=== PATIENT | male | born 1975 | race Caucasian/White ===

== ENCOUNTER 2017-02-16 12:24 | Emergency (ER) | payer MEDICAID ==
[~2017-02-16] VITALS: Ht 167.6 cm; Wt 63.6 kg
[~2017-02-16 12:24] MED LIST: OLAN10TA3 PO
[2017-02-16 12:28] VITALS: BP 128/69
== END 2017-02-16 15:00 | disposition left against medical advice (07) ==
LOC: EMS 12:26
DX: R05 Cough (principal); F17.210 Nicotine dependence, cigarettes, uncomplicated; Z53.21 Procedure and treatment not carried out due to patient leaving prior to being seen by health care provider

== ENCOUNTER 2018-07-17 12:57 | Emergency (ER) | payer MEDICAID ==
[~2018-07-17] VITALS: Ht 177.8 cm; Wt 73.6 kg
[2018-07-17 14:06] LABS: BASOPHILS % (AUTO) 0.6 % (0.0-2.0); HEMATOCRIT 40.3 % (41-53); HEMOGLOBIN 13.8 g/dL (13.5-17.5); LYMPHOCYTES # (AUTO) 1.1 K/uL (1.0-4.8); LYMPHOCYTES % (AUTO) 22.2 % (22.0-44.0); MEAN CORPUSCULAR HEMOGLOBIN 29.2 pg (26.0-34.0); MEAN CORPUSCULAR HGB CONC 34.1 G/dL (31.0-37.0); MEAN CORPUSCULAR VOLUME 86 fL (80-100); MONOCYTES # (AUTO) 0.5 K/uL (0.1-1.0); MONOCYTES % (AUTO) 9.1 % (2.0-9.0); NEUTROPHILS # (AUTO) 3.2 K/uL (1.8-7.7); NEUTROPHILS % (AUTO) 63.1 % (40.0-70.0); PLATELET COUNT (AUTO) 237 K/uL (150-450); RED BLOOD CELL COUNT(AUTO) 4.72 MIL/uL (4.50-5.90); RED CELL DISTRIBUTION WIDTH 13.3 % (11.5-14.5)
[2018-07-17 14:20] LABS: ANION GAP 5 mmol/L (8-16); CALCIUM, TOTAL 9.3 mg/dL (8.8-10.5); CARBON DIOXIDE 32 mmol/L (22-29); CHLORIDE 102 mmol/L (98-107); CREATININE 1.06 mg/dL (0.60-1.30); GLOMERULAR FILTR. RATE CALC > 60 mL/min (>60); GLUCOSE,RANDOM 94 mg/dL (70-110); POTASSIUM 4.1 mmol/L (3.5-5.1); SODIUM SERUM 139 mmol/L (136-145); UREA NITROGEN, BLOOD 7 mg/dL (7-18)
[2018-07-17 14:25] LABS: ALANINE AMINOTRANSFERASE 23 U/L (12-78); ALBUMIN 3.9 g/dL (3.4-5.0); ALKALINE PHOSPHATASE 84 U/L (46-116); ASPARTATE AMINOTRANSFERASE 13 U/L (15-37); BILIRUBIN,TOTAL 0.3 mg/dL (0.1-1.0); TOTAL PROTEIN, SERUM 7.2 g/dL (6.4-8.2)
[2018-07-17 15:37] LABS: AMPHET/METH SCREEN,URINE POSITIVE (NEGATIVE); BARBITURATE SCREEN, URINE NEGATIVE (NEGATIVE); BENZODIAZEPINES SCREEN,URINE NEGATIVE (NEGATIVE); CANNABINOID SCREEN,URINE NEGATIVE (NEGATIVE); COCAINE SCREEN,URINE NEGATIVE (NEGATIVE); METHADONE SCREEN, URINE NEGATIVE (NEGATIVE); OPIATE SCREEN,URINE NEGATIVE (NEGATIVE); PHENCYCLIDINE SCREEN,URINE NEGATIVE (NEGATIVE)
[2018-07-17 20:17] VITALS: BP 120/80
== END 2018-07-17 20:19 | disposition home or self-care (01) ==
LOC: EMS 13:00
DX: F20.9 Schizophrenia, unspecified (principal); F31.9 Bipolar disorder, unspecified; F17.210 Nicotine dependence, cigarettes, uncomplicated; Z79.899 Other long term (current) drug therapy
CPT/HCPCS: 36415; 80053; 80307; 85025; 99285; G0480

== ENCOUNTER 2020-08-14 19:10 | Emergency (ER) | payer MEDICAID ==
[~2020-08-14] VITALS: Ht 177.8 cm; Wt 63.6 kg
[~2020-08-14 19:10] MED LIST changes: -OLAN10TA3 PO; +OLAN10TA74 PO
[2020-08-14 19:46] VITALS: BP 137/74
== END 2020-08-14 20:10 | disposition home or self-care (01) ==
LOC: EMS 19:10
DX: Z76.5 Malingerer [conscious simulation] (principal); F17.210 Nicotine dependence, cigarettes, uncomplicated; F31.9 Bipolar disorder, unspecified; F20.9 Schizophrenia, unspecified; Z79.899 Other long term (current) drug therapy
CPT/HCPCS: 99281; 99406; Z7502

== ENCOUNTER 2022-07-11 13:52 | Inpatient (IN) | payer MEDICAID ==
[~2022-07-11] VITALS: Ht 177.8 cm; Wt 69.7 kg
[2022-07-11 15:58] LABS: COVID AG,FIA SOURCE NASAL SWAB
[2022-07-11] MEDS ORDERED: QUEtiapine FUMARATE 100 MG TABLET PO ONE (16:00)
[2022-07-11] MEDS ORDERED: DiphenhydrAMINE HCL 25 MG CAPSULE PO ONE (16:00)
[2022-07-11] MEDS ORDERED: LORazepam 1 MG TABLET PO ONE (16:00)
[2022-07-11 16:38] LABS: SARS-COV2 (COVID) ANTIGEN,FIA Negative (Negative)
[2022-07-11 17:23] LABS: PH,URINE DRUG SCREEN 6.5 (5.0-8.0)
[2022-07-11 17:30] LABS: AMPHET/METH SCREEN,URINE POSITIVE (NEGATIVE); BARBITURATE SCREEN, URINE NEGATIVE (NEGATIVE); BENZODIAZEPINES SCREEN,URINE NEGATIVE (NEGATIVE); CANNABINOID SCREEN,URINE NEGATIVE (NEGATIVE); COCAINE SCREEN,URINE NEGATIVE (NEGATIVE); METHADONE SCREEN, URINE NEGATIVE (NEGATIVE); OPIATE SCREEN,URINE NEGATIVE (NEGATIVE); PHENCYCLIDINE SCREEN,URINE NEGATIVE (NEGATIVE)
[2022-07-11 17:31] LABS: ALCOHOL, URINE DRUG SCREEN NEGATIVE (NEGATIVE)
[2022-07-11 17:47] LABS: BASOPHILS % (AUTO) 0.4 % (0.0-2.0); HEMATOCRIT 38.9 % (41-53); HEMOGLOBIN 13.1 g/dL (13.5-17.5); LYMPHOCYTES # (AUTO) 1.7 K/uL (1.0-4.8); LYMPHOCYTES % (AUTO) 25.5 % (22.0-44.0); MEAN CORPUSCULAR HEMOGLOBIN 28.8 pg (26.0-34.0); MEAN CORPUSCULAR HGB CONC 33.6 G/dL (31.0-37.0); MEAN CORPUSCULAR VOLUME 86 fL (80-100); MONOCYTES # (AUTO) 0.4 K/uL (0.1-1.0); MONOCYTES % (AUTO) 6.7 % (2.0-9.0); NEUTROPHILS # (AUTO) 4.3 K/uL (1.8-7.7); NEUTROPHILS % (AUTO) 64.4 % (40.0-70.0); PLATELET COUNT (AUTO) 304 K/uL (150-450); RED BLOOD CELL COUNT(AUTO) 4.54 MIL/uL (4.50-5.90); RED CELL DISTRIBUTION WIDTH 13.3 % (11.5-14.5); WHITE BLOOD COUNT (AUTO) 6.7 K/uL (4.5-11.0)
[2022-07-11 17:57] LABS: ANION GAP 5 mmol/L (8-16); CALCIUM, TOTAL 8.9 mg/dL (8.8-10.5); CARBON DIOXIDE 31 mmol/L (22-29); CHLORIDE 104 mmol/L (98-107); CREATININE 0.89 mg/dL (0.60-1.30); GLOMERULAR FILTR. RATE CALC > 60 mL/min (>60); GLUCOSE,RANDOM 61 mg/dL (70-110); POTASSIUM 3.7 mmol/L (3.5-5.1); SODIUM SERUM 140 mmol/L (136-145); UREA NITROGEN, BLOOD 16 mg/dL (7-18)
[2022-07-11 18:03] LABS: ALANINE AMINOTRANSFERASE 16 U/L (12-78); ALBUMIN 3.3 g/dL (3.4-5.0); ALKALINE PHOSPHATASE 99 U/L (46-116); ASPARTATE AMINOTRANSFERASE 15 U/L (15-37); BILIRUBIN,TOTAL 0.3 mg/dL (0.1-1.0); TOTAL PROTEIN, SERUM 6.7 g/dL (6.4-8.2)
[2022-07-11 18:09] LABS: ALCOHOL, BLOOD (SERUM) < 3 mg/dL (0-10)
[2022-07-11 21:03] VITALS: BP 135/80; PULSE 85; RESP 20; TEMP 97.5
[2022-07-11] MEDS ORDERED: LOPERAMIDE HCL 2 MG CAPSULE PO PRN (23:45)
[2022-07-11] MEDS ORDERED: ALBUTEROL SULFATE HFA 90 MCG/PUFF 8 GM INHALER IH PRN (23:45)
[2022-07-11] MEDS ORDERED: MAGNESIUM HYDROXIDE SUSPENSION 30 ML UDCUP PO PRN (23:45)
[2022-07-11] MEDS ORDERED: ONDANSETRON HCL 4 MG TABLET PO PRN (23:45)
[2022-07-11] MEDS ORDERED: CloNIDine HCL 0.1 MG TABLET PO PRN (23:45)
[2022-07-11] MEDS ORDERED: PETROLATUM,WHITE 28 GM JELLY TP PRN (23:45)
[2022-07-11] MEDS ORDERED: GuaiFENesin/D-METHORPHAN [SUGAR-FREE] 200-20MG/10 ML SYRUP UDCUP PO PRN (23:45)
[2022-07-11] MEDS ORDERED: IBUPROFEN 400 MG TABLET PO PRN (23:45)
[2022-07-11] MEDS ORDERED: ACETAMINOPHEN 325 MG TABLET PO PRN (23:45)
[2022-07-11] MEDS ORDERED: MAG HYDROX/AL HYDROX/SIMETH ES 30 ML SUSPENSION UDCUP PO PRN (23:45)
[2022-07-11] MEDS ORDERED: DOCUSATE SODIUM 100 MG CAPSULE PO PRN (23:45)
[2022-07-11] MEDS ORDERED: NICOTINE 14 MG/24 HOUR PATCH TD PRN (23:45)
[2022-07-12] MEDS: HALOPERIDOL 5 MG TABLET PO PRN (08:18)
[2022-07-12] MEDS: LORazepam 2 MG TABLET PO PRN (08:18)
[2022-07-12 09:25] VITALS: BP 121/66; PULSE 111; RESP 19; TEMP 98.5
[2022-07-12 20:27] VITALS: RESP 18
[2022-07-12] MEDS: OLANZapine 10 MG TABLET PO SCH (21:00)
[2022-07-13 09:13] VITALS: BP 125/85; PULSE 89; RESP 19; TEMP 97.6
[2022-07-13 20:11] VITALS: RESP 20
[2022-07-13] MEDS: OLANZapine 10 MG TABLET PO SCH (20:34)
[2022-07-14] MEDS: MUPIROCIN CALCIUM 2% 15 GM CREAM TP SCH ×2 (09:00→17:00)
[2022-07-14 09:06] VITALS: BP 124/86; PULSE 101; RESP 18; TEMP 98
[2022-07-14] MEDS: LORazepam 2 MG TABLET PO PRN (09:24)
[2022-07-14] MEDS: HALOPERIDOL 5 MG TABLET PO PRN (09:24)
[2022-07-14 20:21] VITALS: RESP 20
[2022-07-14] MEDS: OLANZapine 10 MG TABLET PO SCH (20:48)
[2022-07-15] MEDS: MUPIROCIN CALCIUM 2% 15 GM CREAM TP SCH ×2 (08:21→17:20)
[2022-07-15 08:30] VITALS: BP 105/76; PULSE 91; RESP 17; TEMP 97.5
[2022-07-15] MEDS: OLANZapine 10 MG TABLET PO SCH (20:41)
[2022-07-15 22:05] VITALS: BP 128/64; PULSE 80; RESP 18; TEMP 98.2
[2022-07-16 08:00] VITALS: BP 126/91; PULSE 102; RESP 17; TEMP 97.8
[2022-07-16] MEDS: MUPIROCIN CALCIUM 2% 15 GM CREAM TP SCH ×2 (09:00→16:49)
[2022-07-16] MEDS: OLANZapine 10 MG TABLET PO SCH (20:52)
[2022-07-16 21:17] VITALS: RESP 18; TEMP 97.5
[2022-07-17 08:17] VITALS: BP 95/59; PULSE 83; RESP 16; TEMP 98.3
[2022-07-17] MEDS: MUPIROCIN CALCIUM 2% 15 GM CREAM TP SCH ×3 (08:25→17:00)
[2022-07-17] MEDS: LORazepam 2 MG TABLET PO PRN ×2 (16:12→21:10)
[2022-07-17 20:54] VITALS: BP 105/64; PULSE 79; RESP 17; TEMP 98.1
[2022-07-17] MEDS: OLANZapine 10 MG TABLET PO SCH (21:00)
[2022-07-18] MEDS: MUPIROCIN CALCIUM 2% 15 GM CREAM TP SCH ×2 (07:44→16:11)
[2022-07-18 08:47] VITALS: BP 106/61; PULSE 79; RESP 18; TEMP 98.1
[2022-07-18] MEDS: LORazepam 2 MG TABLET PO PRN ×2 (16:09→21:33)
[2022-07-18 20:41] VITALS: BP 107/67; PULSE 82; RESP 18; TEMP 97.9
[2022-07-18] MEDS: OLANZapine 10 MG TABLET PO SCH (20:59)
[2022-07-19] MEDS: HALOPERIDOL 5 MG TABLET PO PRN (05:32)
[2022-07-19] MEDS: MULTIVITAMINS WITH MINERALS, THERAPEUTIC TABLET PO SCH (08:06)
[2022-07-19 09:04] VITALS: BP 110/71; PULSE 71; RESP 18; TEMP 97.4
[2022-07-19] MEDS: LORazepam 2 MG TABLET PO PRN (15:28)
[2022-07-19] MEDS: OLANZapine 10 MG TABLET PO SCH (20:17)
[2022-07-19 21:04] VITALS: BP 108/65; PULSE 76; RESP 18; TEMP 97.6
[2022-07-20] MEDS: MULTIVITAMINS WITH MINERALS, THERAPEUTIC TABLET PO SCH (08:24)
[2022-07-20 09:48] VITALS: BP 119/67; PULSE 83; RESP 19; TEMP 97.6
[2022-07-20] MEDS: LORazepam 2 MG TABLET PO PRN ×2 (18:12→22:20)
[2022-07-20] MEDS: HALOPERIDOL 5 MG TABLET PO PRN (20:23)
[2022-07-20] MEDS: OLANZapine 10 MG TABLET PO SCH (20:23)
[2022-07-20 20:39] VITALS: BP 112/66; PULSE 81; RESP 17; TEMP 97.7
[2022-07-21] MEDS: MULTIVITAMINS WITH MINERALS, THERAPEUTIC TABLET PO SCH (08:09)
[2022-07-21 08:31] VITALS: RESP 18
[2022-07-21] MEDS: LORazepam 2 MG TABLET PO PRN (11:22)
[2022-07-21] MEDS: OLANZapine 10 MG TABLET PO SCH (20:09)
[2022-07-21 20:18] VITALS: RESP 20
[2022-07-22 08:17] VITALS: RESP 18
[2022-07-22] MEDS: MULTIVITAMINS WITH MINERALS, THERAPEUTIC TABLET PO SCH (08:58)
[2022-07-22] MEDS: LORazepam 2 MG TABLET PO PRN (17:42)
[2022-07-22] MEDS: HALOPERIDOL 5 MG TABLET PO PRN (17:42)
[2022-07-22] MEDS: OLANZapine 10 MG TABLET PO SCH (20:23)
[2022-07-22 21:22] VITALS: BP 118/70; PULSE 75; RESP 18; TEMP 98
[2022-07-23 08:00] VITALS: BP 116/81; PULSE 78; RESP 18; TEMP 98
[2022-07-23] MEDS: LORazepam 2 MG TABLET PO PRN (09:12)
[2022-07-23] MEDS: HALOPERIDOL 5 MG TABLET PO PRN (09:12)
[2022-07-23] MEDS: MULTIVITAMINS WITH MINERALS, THERAPEUTIC TABLET PO SCH (09:12)
[2022-07-23 20:03] VITALS: BP 117/71; PULSE 76; RESP 18; TEMP 97.1
[2022-07-23] MEDS: OLANZapine 10 MG TABLET PO SCH (20:30)
[2022-07-24] MEDS: MULTIVITAMINS WITH MINERALS, THERAPEUTIC TABLET PO SCH (07:52)
[2022-07-24 08:23] VITALS: BP 96/61; PULSE 80; RESP 19; TEMP 97.6
[2022-07-24] MEDS: OLANZapine 10 MG TABLET PO SCH (20:38)
[2022-07-24 22:08] VITALS: BP 97/60; PULSE 75; RESP 18; TEMP 97.4
[2022-07-25] MEDS: MULTIVITAMINS WITH MINERALS, THERAPEUTIC TABLET PO SCH (09:00)
[2022-07-25 20:18] VITALS: BP 102/71; PULSE 62; RESP 18; TEMP 97.1
[2022-07-25] MEDS: OLANZapine 10 MG TABLET PO SCH (20:31)
[2022-07-26] MEDS: MULTIVITAMINS WITH MINERALS, THERAPEUTIC TABLET PO SCH (08:37)
[2022-07-26 10:12] VITALS: BP 92/55; PULSE 88; RESP 18; TEMP 97.8
[2022-07-26] MEDS: LORazepam 2 MG TABLET PO PRN (11:23)
[2022-07-26] MEDS: HALOPERIDOL 5 MG TABLET PO PRN (11:23)
[2022-07-26] MEDS ORDERED: TUBERCULIN, PURIFIED PROTEIN DERIVATIVE 5 TU/0.1 ML SYRINGE ID ONE (11:30)
[2022-07-26 20:11] VITALS: BP 93/58; PULSE 78; RESP 18; TEMP 98.3
[2022-07-26] MEDS: OLANZapine 10 MG TABLET PO SCH (20:35)
[2022-07-27 08:15] VITALS: BP 106/66; PULSE 70; RESP 18; TEMP 97.6
[2022-07-27] MEDS: MULTIVITAMINS WITH MINERALS, THERAPEUTIC TABLET PO SCH (08:15)
[2022-07-27] MEDS: LORazepam 2 MG TABLET PO PRN (13:09)
[2022-07-27] MEDS: OLANZapine 10 MG TABLET PO SCH (21:00)
[2022-07-27 21:22] VITALS: BP 110/62; PULSE 80; RESP 20; TEMP 97.3
[2022-07-28] MEDS: HALOPERIDOL 5 MG TABLET PO PRN (08:46)
[2022-07-28] MEDS: LORazepam 2 MG TABLET PO PRN (08:46)
[2022-07-28] MEDS: MULTIVITAMINS WITH MINERALS, THERAPEUTIC TABLET PO SCH (08:46)
[2022-07-28] MEDS: OLANZapine 5 MG TABLET PO SCH (08:47)
[2022-07-28 08:48] VITALS: BP 123/79; PULSE 99; RESP 18; TEMP 98.1
[2022-07-28] MEDS: OLANZapine 10 MG TABLET PO SCH (20:24)
[2022-07-28 20:36] VITALS: BP 119/81; PULSE 85; RESP 18; TEMP 97.7
[2022-07-29 08:34] VITALS: BP 102/62; PULSE 74; RESP 18; TEMP 98.1
[2022-07-29] MEDS: MULTIVITAMINS WITH MINERALS, THERAPEUTIC TABLET PO SCH (09:03)
[2022-07-29] MEDS: OLANZapine 5 MG TABLET PO SCH (09:03)
[2022-07-29] MEDS: LORazepam 2 MG TABLET PO PRN (09:03)
[2022-07-29] MEDS: OLANZapine 10 MG TABLET PO SCH (20:48)
[2022-07-29 21:26] VITALS: BP 110/76; PULSE 81; RESP 20; TEMP 97.9
[2022-07-30 08:31] VITALS: BP 93/67; PULSE 45; RESP 18; TEMP 98.3
[2022-07-30] MEDS: MULTIVITAMINS WITH MINERALS, THERAPEUTIC TABLET PO SCH (09:22)
[2022-07-30] MEDS: OLANZapine 5 MG TABLET PO SCH (09:22)
[2022-07-30 20:13] VITALS: BP 118/62; PULSE 83; RESP 20; TEMP 97.3
[2022-07-30] MEDS: OLANZapine 10 MG TABLET PO SCH (20:47)
[2022-07-31 08:26] VITALS: BP 97/58; PULSE 67; RESP 19; TEMP 97.6
[2022-07-31] MEDS: OLANZapine 5 MG TABLET PO SCH (08:56)
[2022-07-31] MEDS: MULTIVITAMINS WITH MINERALS, THERAPEUTIC TABLET PO SCH (08:56)
[2022-07-31 20:08] VITALS: RESP 18; TEMP 97.3
[2022-07-31] MEDS: OLANZapine 10 MG TABLET PO SCH (20:40)
[2022-08-01 08:30] VITALS: RESP 18
[2022-08-01] MEDS: OLANZapine 5 MG TABLET PO SCH (09:00)
[2022-08-01] MEDS: MULTIVITAMINS WITH MINERALS, THERAPEUTIC TABLET PO SCH (09:00)
[2022-08-01 20:15] VITALS: BP 121/76; PULSE 82; RESP 18; TEMP 97.1
[2022-08-01] MEDS: OLANZapine 10 MG TABLET PO SCH (20:52)
[2022-08-02 08:25] VITALS: BP 95/56; PULSE 62; RESP 18; TEMP 98
[2022-08-02] MEDS: OLANZapine 5 MG TABLET PO SCH (09:04)
[2022-08-02] MEDS: MULTIVITAMINS WITH MINERALS, THERAPEUTIC TABLET PO SCH (09:04)
[2022-08-02] MEDS: OLANZapine 10 MG TABLET PO SCH (20:26)
[2022-08-02 21:03] VITALS: BP 116/64; PULSE 66; RESP 18; TEMP 97.8
[2022-08-03] MEDS: OLANZapine 10 MG TABLET PO SCH ×2 (09:41→20:56)
[2022-08-03] MEDS: MULTIVITAMINS WITH MINERALS, THERAPEUTIC TABLET PO SCH (09:41)
[2022-08-03 14:00] VITALS: BP 96/58; PULSE 65; RESP 17; TEMP 98.9
[2022-08-03 20:31] VITALS: BP 108/67; PULSE 78; RESP 19; TEMP 97.6
[2022-08-04 08:22] VITALS: BP 98/67; PULSE 72; RESP 18; TEMP 97.8
[2022-08-04] MEDS: OLANZapine 10 MG TABLET PO SCH ×2 (08:38→20:26)
[2022-08-04] MEDS: MULTIVITAMINS WITH MINERALS, THERAPEUTIC TABLET PO SCH (08:38)
[2022-08-04 21:48] VITALS: RESP 18
[2022-08-05] MEDS: MULTIVITAMINS WITH MINERALS, THERAPEUTIC TABLET PO SCH (08:16)
[2022-08-05] MEDS: OLANZapine 10 MG TABLET PO SCH ×2 (08:16→20:18)
[2022-08-05 08:36] VITALS: BP 99/62; PULSE 79; RESP 17; TEMP 98.1
[2022-08-05 20:34] VITALS: BP 110/63; PULSE 80; RESP 18; TEMP 98
[2022-08-06] MEDS: MULTIVITAMINS WITH MINERALS, THERAPEUTIC TABLET PO SCH (08:08)
[2022-08-06] MEDS: OLANZapine 10 MG TABLET PO SCH ×2 (08:08→20:10)
[2022-08-06 08:27] VITALS: RESP 17; TEMP 97.8
[2022-08-06 21:56] VITALS: RESP 18
[2022-08-07] MEDS: MULTIVITAMINS WITH MINERALS, THERAPEUTIC TABLET PO SCH (08:22)
[2022-08-07] MEDS: OLANZapine 10 MG TABLET PO SCH ×2 (08:22→21:13)
[2022-08-07 08:36] VITALS: BP 98/54; PULSE 68; RESP 17; TEMP 98.3
[2022-08-07 20:14] VITALS: RESP 18
[2022-08-07] MEDS: HALOPERIDOL 5 MG TABLET PO PRN (20:30)
[2022-08-07] MEDS: LORazepam 2 MG TABLET PO PRN (20:30)
[2022-08-08] MEDS: OLANZapine 10 MG TABLET PO SCH ×2 (08:26→21:19)
[2022-08-08] MEDS: MULTIVITAMINS WITH MINERALS, THERAPEUTIC TABLET PO SCH (08:26)
[2022-08-08] MEDS: HALOPERIDOL 5 MG TABLET PO PRN ×2 (08:26→21:19)
[2022-08-08 10:25] VITALS: BP 107/52; PULSE 86; RESP 17; TEMP 97.3
[2022-08-08 10:34] VITALS: BP 107/52; PULSE 86; RESP 18; TEMP 97.3
[2022-08-08] MEDS: LORazepam 2 MG TABLET PO PRN ×2 (16:15→21:19)
[2022-08-08 20:16] VITALS: BP 105/73; PULSE 82; RESP 18; TEMP 97.6
[2022-08-09] MEDS: OLANZapine 10 MG TABLET PO SCH ×2 (08:52→20:34)
[2022-08-09] MEDS: MULTIVITAMINS WITH MINERALS, THERAPEUTIC TABLET PO SCH (08:52)
[2022-08-09] MEDS: HALOPERIDOL 5 MG TABLET PO PRN (08:53)
[2022-08-09 09:27] VITALS: BP 90/61; PULSE 83; RESP 18; TEMP 98
[2022-08-09 20:36] VITALS: RESP 18
[2022-08-10] MEDS: OLANZapine 10 MG TABLET PO SCH ×2 (08:41→21:25)
[2022-08-10] MEDS: MULTIVITAMINS WITH MINERALS, THERAPEUTIC TABLET PO SCH (08:41)
[2022-08-10 20:23] VITALS: RESP 18
[2022-08-10] MEDS: HALOPERIDOL 5 MG TABLET PO PRN (21:24)
[2022-08-11 08:05] VITALS: RESP 18; TEMP 98.5
[2022-08-11] MEDS: OLANZapine 10 MG TABLET PO SCH ×2 (09:55→21:04)
[2022-08-11] MEDS: MULTIVITAMINS WITH MINERALS, THERAPEUTIC TABLET PO SCH (09:55)
[2022-08-11] MEDS: ZOLPIDEM TARTRATE 10 MG TABLET PO PRN (21:04)
[2022-08-11 21:38] VITALS: RESP 17
[2022-08-12 08:01] VITALS: BP 90/60; PULSE 69; RESP 17; TEMP 97.8
[2022-08-12] MEDS: OLANZapine 10 MG TABLET PO SCH ×2 (08:51→20:58)
[2022-08-12] MEDS: MULTIVITAMINS WITH MINERALS, THERAPEUTIC TABLET PO SCH (08:51)
[2022-08-12 21:02] VITALS: RESP 18
[2022-08-13 09:22] VITALS: BP 91/58; PULSE 72; RESP 17; TEMP 97.8
[2022-08-13] MEDS: MULTIVITAMINS WITH MINERALS, THERAPEUTIC TABLET PO SCH (09:39)
[2022-08-13] MEDS: OLANZapine 10 MG TABLET PO SCH ×2 (09:39→21:10)
[2022-08-13 21:56] VITALS: BP 131/82; PULSE 72; RESP 18; TEMP 98.1
[2022-08-14] MEDS: OLANZapine 10 MG TABLET PO SCH ×2 (08:51→20:51)
[2022-08-14] MEDS: MULTIVITAMINS WITH MINERALS, THERAPEUTIC TABLET PO SCH (08:51)
[2022-08-14 08:55] VITALS: RESP 18
[2022-08-14 21:45] VITALS: RESP 18
[2022-08-15] MEDS: MULTIVITAMINS WITH MINERALS, THERAPEUTIC TABLET PO SCH (08:03)
[2022-08-15] MEDS: OLANZapine 10 MG TABLET PO SCH ×2 (08:03→20:33)
[2022-08-15 08:26] VITALS: BP 101/63; PULSE 78; RESP 18; TEMP 98.1
[2022-08-15 21:52] VITALS: BP 109/71; PULSE 62; RESP 18; TEMP 97.6
[2022-08-16] MEDS: OLANZapine 10 MG TABLET PO SCH ×2 (08:14→20:08)
[2022-08-16] MEDS: MULTIVITAMINS WITH MINERALS, THERAPEUTIC TABLET PO SCH (08:14)
[2022-08-16 08:38] VITALS: RESP 18
[2022-08-16 20:18] VITALS: BP 96/56; PULSE 68; RESP 16; TEMP 98
[2022-08-17] MEDS: OLANZapine 10 MG TABLET PO SCH ×2 (09:21→20:42)
[2022-08-17] MEDS: MULTIVITAMINS WITH MINERALS, THERAPEUTIC TABLET PO SCH (09:21)
[2022-08-17 10:00] VITALS: BP 96/64; PULSE 67; RESP 16; TEMP 97.6
[2022-08-17] MEDS: HALOPERIDOL 5 MG TABLET PO PRN (19:55)
[2022-08-17] MEDS: LORazepam 2 MG TABLET PO PRN (19:55)
[2022-08-17 21:10] VITALS: BP 95/58; PULSE 65; RESP 16; TEMP 97.5
[2022-08-18 09:25] VITALS: BP 88/57; PULSE 81; RESP 18; TEMP 98.1
[2022-08-18] MEDS: OLANZapine 10 MG TABLET PO SCH ×2 (09:27→20:21)
[2022-08-18] MEDS: MULTIVITAMINS WITH MINERALS, THERAPEUTIC TABLET PO SCH (09:27)
[2022-08-18 20:40] VITALS: BP 93/61; PULSE 79; RESP 18; TEMP 97.7
[2022-08-19 08:46] VITALS: BP 98/56; PULSE 68; RESP 18; TEMP 98.1
[2022-08-19] MEDS: MULTIVITAMINS WITH MINERALS, THERAPEUTIC TABLET PO SCH (09:02)
[2022-08-19] MEDS: OLANZapine 10 MG TABLET PO SCH ×2 (09:02→20:23)
[2022-08-19 20:08] VITALS: BP 108/77; PULSE 68; RESP 18; TEMP 98
[2022-08-20] MEDS: MULTIVITAMINS WITH MINERALS, THERAPEUTIC TABLET PO SCH (08:36)
[2022-08-20] MEDS: OLANZapine 10 MG TABLET PO SCH ×2 (08:36→20:27)
[2022-08-20 09:27] VITALS: PULSE 60; TEMP 98.4
[2022-08-20 21:03] VITALS: BP 104/50; PULSE 62; RESP 17; TEMP 97.3
[2022-08-21] MEDS: OLANZapine 10 MG TABLET PO SCH ×2 (08:40→20:56)
[2022-08-21] MEDS: MULTIVITAMINS WITH MINERALS, THERAPEUTIC TABLET PO SCH (08:40)
[2022-08-21 20:27] VITALS: BP 124/82; PULSE 82; RESP 18; TEMP 97.6
[2022-08-22 08:37] VITALS: BP 90/60; PULSE 74; RESP 18; TEMP 98.6
[2022-08-22] MEDS: OLANZapine 10 MG TABLET PO SCH ×2 (09:01→20:33)
[2022-08-22] MEDS: MULTIVITAMINS WITH MINERALS, THERAPEUTIC TABLET PO SCH (09:01)
[2022-08-22] MEDS: ZOLPIDEM TARTRATE 10 MG TABLET PO PRN (20:33)
[2022-08-22 20:52] VITALS: RESP 18
[2022-08-23] MEDS: OLANZapine 10 MG TABLET PO SCH ×2 (08:16→20:56)
[2022-08-23] MEDS: MULTIVITAMINS WITH MINERALS, THERAPEUTIC TABLET PO SCH (08:16)
[2022-08-23 09:53] VITALS: BP 116/77; PULSE 100; RESP 18; TEMP 97.9
[2022-08-23 20:35] VITALS: BP 120/59; PULSE 76; RESP 18; TEMP 97.8
[2022-08-24 08:10] VITALS: BP 90/53; PULSE 70; RESP 20; TEMP 98.5
[2022-08-24] MEDS: MULTIVITAMINS WITH MINERALS, THERAPEUTIC TABLET PO SCH (08:18)
[2022-08-24] MEDS: OLANZapine 10 MG TABLET PO SCH ×2 (08:18→21:17)
[2022-08-24] MEDS: HALOPERIDOL 5 MG TABLET PO PRN (19:50)
[2022-08-24] MEDS: LORazepam 2 MG TABLET PO PRN (19:50)
[2022-08-24 20:50] VITALS: TEMP 97.8
[2022-08-25 08:00] VITALS: BP 103/59; PULSE 85; RESP 18; TEMP 98.6
[2022-08-25] MEDS: OLANZapine 10 MG TABLET PO SCH ×2 (08:41→21:28)
[2022-08-25] MEDS: MULTIVITAMINS WITH MINERALS, THERAPEUTIC TABLET PO SCH (08:41)
[2022-08-25 22:28] VITALS: BP 92/63; PULSE 72; RESP 18; TEMP 97.6
[2022-08-26 08:00] VITALS: BP 120/76; PULSE 78; RESP 18; TEMP 98
[2022-08-26] MEDS: MULTIVITAMINS WITH MINERALS, THERAPEUTIC TABLET PO SCH (08:39)
[2022-08-26] MEDS: OLANZapine 10 MG TABLET PO SCH ×2 (08:39→21:21)
[2022-08-26 20:46] VITALS: BP 131/77; PULSE 82; RESP 18; TEMP 98.1
[2022-08-27 09:41] VITALS: BP 97/57; PULSE 75; RESP 19; TEMP 97.5
[2022-08-27] MEDS: MULTIVITAMINS WITH MINERALS, THERAPEUTIC TABLET PO SCH (10:19)
[2022-08-27] MEDS: OLANZapine 10 MG TABLET PO SCH ×2 (10:19→20:45)
[2022-08-27 20:54] VITALS: BP 90/51; PULSE 61; RESP 19; TEMP 97.6
[2022-08-28] MEDS: MULTIVITAMINS WITH MINERALS, THERAPEUTIC TABLET PO SCH (08:26)
[2022-08-28] MEDS: OLANZapine 10 MG TABLET PO SCH ×2 (08:27→20:32)
[2022-08-28 08:40] VITALS: RESP 18
[2022-08-28 20:37] VITALS: BP 113/78; PULSE 76; RESP 18; TEMP 97.5
[2022-08-29 09:00] VITALS: BP 121/69; PULSE 80; RESP 17; TEMP 97.6
[2022-08-29] MEDS: OLANZapine 10 MG TABLET PO SCH ×2 (09:23→20:32)
[2022-08-29] MEDS: MULTIVITAMINS WITH MINERALS, THERAPEUTIC TABLET PO SCH (09:23)
[2022-08-29 22:07] VITALS: RESP 18
[2022-08-30 08:06] VITALS: BP 102/64; PULSE 64; RESP 18; TEMP 97.3
[2022-08-30] MEDS: OLANZapine 10 MG TABLET PO SCH ×2 (08:11→20:34)
[2022-08-30] MEDS: MULTIVITAMINS WITH MINERALS, THERAPEUTIC TABLET PO SCH (08:11)
[2022-08-30 20:13] VITALS: BP 132/82; PULSE 78; RESP 18; TEMP 97.6
[2022-08-31] MEDS: OLANZapine 10 MG TABLET PO SCH ×2 (08:09→20:36)
[2022-08-31] MEDS: MULTIVITAMINS WITH MINERALS, THERAPEUTIC TABLET PO SCH (08:09)
[2022-08-31 09:42] VITALS: BP 97/60; PULSE 69; RESP 18; TEMP 97.3
[2022-08-31] MEDS: NICOTINE POLACRILEX 2 MG LOZENGE PO PRN (16:03)
[2022-08-31 21:58] VITALS: BP 90/60; PULSE 68; RESP 18; TEMP 97.6
[2022-09-01] MEDS: MULTIVITAMINS WITH MINERALS, THERAPEUTIC TABLET PO SCH (08:09)
[2022-09-01] MEDS: OLANZapine 10 MG TABLET PO SCH ×2 (08:09→20:31)
[2022-09-01] MEDS: LORazepam 2 MG TABLET PO PRN (08:31)
[2022-09-01 09:14] VITALS: BP 106/60; PULSE 79; RESP 18; TEMP 98.4
[2022-09-01 20:38] VITALS: BP 110/65; PULSE 77; RESP 18; TEMP 98.1
[2022-09-02] MEDS: MULTIVITAMINS WITH MINERALS, THERAPEUTIC TABLET PO SCH (08:38)
[2022-09-02] MEDS: OLANZapine 10 MG TABLET PO SCH ×2 (08:38→20:26)
[2022-09-02 10:13] VITALS: RESP 18
[2022-09-02] MEDS: NICOTINE POLACRILEX 2 MG LOZENGE PO PRN (14:45)
[2022-09-02 21:40] VITALS: BP 95/60; PULSE 73; RESP 16; TEMP 98.1
[2022-09-03 08:30] VITALS: BP 98/58; PULSE 89; RESP 18; TEMP 98.3
[2022-09-03] MEDS: OLANZapine 10 MG TABLET PO SCH ×2 (10:26→20:57)
[2022-09-03] MEDS: MULTIVITAMINS WITH MINERALS, THERAPEUTIC TABLET PO SCH (10:26)
[2022-09-03] MEDS: NICOTINE POLACRILEX 2 MG LOZENGE PO PRN (15:41)
[2022-09-03 22:00] VITALS: BP 98/60; PULSE 72; RESP 18; TEMP 98.3
[2022-09-04] MEDS: OLANZapine 10 MG TABLET PO SCH ×2 (08:47→21:49)
[2022-09-04] MEDS: MULTIVITAMINS WITH MINERALS, THERAPEUTIC TABLET PO SCH (08:47)
[2022-09-04 10:35] VITALS: BP 112/71; PULSE 75; RESP 18; TEMP 97.7
[2022-09-04] MEDS: NICOTINE POLACRILEX 2 MG LOZENGE PO PRN ×2 (16:51→23:00)
[2022-09-04] MEDS: HALOPERIDOL 5 MG TABLET PO PRN (21:49)
[2022-09-04] MEDS: LORazepam 2 MG TABLET PO PRN (21:49)
[2022-09-04 22:37] VITALS: BP 113/69; PULSE 83; RESP 19; TEMP 98.5
[2022-09-05] MEDS: OLANZapine 10 MG TABLET PO SCH ×2 (08:41→21:27)
[2022-09-05] MEDS: MULTIVITAMINS WITH MINERALS, THERAPEUTIC TABLET PO SCH (08:41)
[2022-09-05 10:02] VITALS: BP 101/56; PULSE 72; RESP 18; TEMP 98.4
[2022-09-05] MEDS: NICOTINE POLACRILEX 2 MG LOZENGE PO PRN ×2 (15:32→21:35)
[2022-09-05 20:25] VITALS: BP 101/67; PULSE 93; RESP 18; TEMP 97.8
[2022-09-05] MEDS: HALOPERIDOL 5 MG TABLET PO PRN (21:27)
[2022-09-05] MEDS: LORazepam 2 MG TABLET PO PRN (21:27)
[2022-09-06] MEDS: MULTIVITAMINS WITH MINERALS, THERAPEUTIC TABLET PO SCH (08:15)
[2022-09-06] MEDS: OLANZapine 10 MG TABLET PO SCH ×2 (08:15→20:43)
[2022-09-06 09:34] VITALS: BP 119/70; PULSE 79; RESP 18; TEMP 98.1
[2022-09-06] MEDS: NICOTINE POLACRILEX 2 MG LOZENGE PO PRN (11:44)
[2022-09-06 20:41] VITALS: BP 92/70; PULSE 88; RESP 20; TEMP 98.9
[2022-09-06] MEDS: LORazepam 2 MG TABLET PO PRN (21:38)
[2022-09-07] MEDS: MULTIVITAMINS WITH MINERALS, THERAPEUTIC TABLET PO SCH (09:05)
[2022-09-07] MEDS: OLANZapine 10 MG TABLET PO SCH ×2 (09:05→20:47)
[2022-09-07] MEDS: NICOTINE POLACRILEX 2 MG LOZENGE PO PRN (12:22)
[2022-09-07 20:33] VITALS: BP 113/66; PULSE 71; RESP 18; TEMP 97.7
[2022-09-08 08:02] VITALS: BP 120/64; PULSE 68; RESP 18; TEMP 97.8
[2022-09-08] MEDS: MULTIVITAMINS WITH MINERALS, THERAPEUTIC TABLET PO SCH (08:55)
[2022-09-08] MEDS: OLANZapine 10 MG TABLET PO SCH ×2 (08:55→20:30)
[2022-09-08] MEDS: NICOTINE POLACRILEX 2 MG LOZENGE PO PRN ×2 (10:50→16:58)
[2022-09-08 20:38] VITALS: BP 104/67; PULSE 73; RESP 19; TEMP 98
[2022-09-09 08:01] VITALS: BP 94/64; PULSE 64; RESP 18; TEMP 97.4
[2022-09-09] MEDS: OLANZapine 10 MG TABLET PO SCH ×2 (08:48→20:57)
[2022-09-09] MEDS: MULTIVITAMINS WITH MINERALS, THERAPEUTIC TABLET PO SCH (08:48)
[2022-09-09] MEDS: NICOTINE POLACRILEX 2 MG LOZENGE PO PRN ×2 (12:19→18:24)
[2022-09-09 20:40] VITALS: BP 97/66; PULSE 71; RESP 16; TEMP 98.6
[2022-09-10 09:22] VITALS: BP 99/64; PULSE 76; RESP 18; TEMP 97.4
[2022-09-10] MEDS: MULTIVITAMINS WITH MINERALS, THERAPEUTIC TABLET PO SCH (10:09)
[2022-09-10] MEDS: OLANZapine 10 MG TABLET PO SCH ×2 (10:09→21:33)
[2022-09-10] MEDS: NICOTINE POLACRILEX 2 MG LOZENGE PO PRN ×2 (10:54→22:03)
[2022-09-10 22:36] VITALS: BP 128/72; PULSE 62; RESP 18; TEMP 97.1
[2022-09-11] MEDS: OLANZapine 10 MG TABLET PO SCH ×2 (08:45→21:38)
[2022-09-11] MEDS: MULTIVITAMINS WITH MINERALS, THERAPEUTIC TABLET PO SCH (08:45)
[2022-09-11] MEDS: NICOTINE POLACRILEX 2 MG LOZENGE PO PRN (09:16)
[2022-09-11 10:19] VITALS: BP 135/76; PULSE 70; RESP 18; TEMP 97.5
[2022-09-11 20:44] VITALS: BP 130/63; PULSE 73; RESP 18; TEMP 97.6
[2022-09-11] MEDS: ZOLPIDEM TARTRATE 10 MG TABLET PO PRN (21:38)
[2022-09-12] MEDS: OLANZapine 10 MG TABLET PO SCH ×2 (08:16→20:15)
[2022-09-12] MEDS: MULTIVITAMINS WITH MINERALS, THERAPEUTIC TABLET PO SCH (08:16)
[2022-09-12 08:35] VITALS: BP 110/70; PULSE 83; RESP 18; TEMP 97.9
[2022-09-12] MEDS: NICOTINE POLACRILEX 2 MG LOZENGE PO PRN (19:45)
[2022-09-12] MEDS: ZOLPIDEM TARTRATE 10 MG TABLET PO PRN (21:22)
[2022-09-12 21:34] VITALS: BP 107/73; PULSE 78; RESP 18; TEMP 97.8
[2022-09-13] MEDS: OLANZapine 10 MG TABLET PO SCH ×2 (08:39→20:52)
[2022-09-13] MEDS: MULTIVITAMINS WITH MINERALS, THERAPEUTIC TABLET PO SCH (08:39)
[2022-09-13 09:28] VITALS: BP 106/78; PULSE 91; RESP 18; TEMP 97.6
[2022-09-13] MEDS: NICOTINE POLACRILEX 2 MG LOZENGE PO PRN ×2 (10:01→17:13)
[2022-09-13] MEDS: CIPROFLOXACIN HCL 0.2%/HYDROCORT 1% 10 ML OTIC SUSPENSION AU SCH (16:05)
[2022-09-13 20:45] VITALS: BP 105/63; PULSE 66; RESP 19; TEMP 98.5
[2022-09-14] MEDS: OLANZapine 10 MG TABLET PO SCH ×2 (08:30→21:33)
[2022-09-14] MEDS: MULTIVITAMINS WITH MINERALS, THERAPEUTIC TABLET PO SCH (08:30)
[2022-09-14] MEDS: CIPROFLOXACIN HCL 0.2%/HYDROCORT 1% 10 ML OTIC SUSPENSION AU SCH ×3 (08:34→16:17)
[2022-09-14 09:48] VITALS: BP 116/68; PULSE 77; RESP 18; TEMP 97.6
[2022-09-14] MEDS: NICOTINE POLACRILEX 2 MG LOZENGE PO PRN (12:44)
[2022-09-14 21:21] VITALS: BP 103/66; PULSE 74; RESP 18; TEMP 97.6
[2022-09-15 08:02] VITALS: BP 128/75; PULSE 82; RESP 18; TEMP 97.9
[2022-09-15] MEDS: MULTIVITAMINS WITH MINERALS, THERAPEUTIC TABLET PO SCH (08:34)
[2022-09-15] MEDS: OLANZapine 10 MG TABLET PO SCH ×2 (08:34→21:05)
[2022-09-15] MEDS: CIPROFLOXACIN HCL 0.2%/HYDROCORT 1% 10 ML OTIC SUSPENSION AU SCH ×2 (08:42→17:00)
[2022-09-15] MEDS: NICOTINE 14 MG/24 HOUR PATCH TD SCH ×2 (08:42→13:23)
[2022-09-16 08:02] VITALS: RESP 18; TEMP 98
[2022-09-16] MEDS: MULTIVITAMINS WITH MINERALS, THERAPEUTIC TABLET PO SCH (08:35)
[2022-09-16] MEDS: OLANZapine 10 MG TABLET PO SCH ×2 (08:35→20:56)
[2022-09-16] MEDS: NICOTINE 14 MG/24 HOUR PATCH TD SCH (08:36)
[2022-09-16] MEDS: CIPROFLOXACIN HCL 0.2%/HYDROCORT 1% 10 ML OTIC SUSPENSION AU SCH ×2 (08:36→16:49)
[2022-09-16 22:32] VITALS: BP 97/61; PULSE 72; RESP 18; TEMP 97.7
[2022-09-17] MEDS: MULTIVITAMINS WITH MINERALS, THERAPEUTIC TABLET PO SCH (08:19)
[2022-09-17] MEDS: OLANZapine 10 MG TABLET PO SCH ×2 (08:20→21:17)
[2022-09-17] MEDS: CIPROFLOXACIN HCL 0.2%/HYDROCORT 1% 10 ML OTIC SUSPENSION AU SCH ×2 (08:20→17:00)
[2022-09-17] MEDS: NICOTINE 14 MG/24 HOUR PATCH TD SCH (09:04)
[2022-09-17 09:15] VITALS: RESP 17
[2022-09-17 21:52] VITALS: BP 123/65; PULSE 69; RESP 18; TEMP 97.8
[2022-09-18] MEDS: OLANZapine 10 MG TABLET PO SCH ×2 (09:05→20:50)
[2022-09-18] MEDS: NICOTINE 14 MG/24 HOUR PATCH TD SCH (09:05)
[2022-09-18] MEDS: CIPROFLOXACIN HCL 0.2%/HYDROCORT 1% 10 ML OTIC SUSPENSION AU SCH ×2 (09:06→16:15)
[2022-09-18] MEDS: MULTIVITAMINS WITH MINERALS, THERAPEUTIC TABLET PO SCH (09:06)
[2022-09-18 09:14] VITALS: RESP 18
[2022-09-18 20:07] VITALS: BP 109/67; PULSE 76; RESP 18; TEMP 98.3
[2022-09-19 09:11] VITALS: BP 98/61; PULSE 61; RESP 18; TEMP 98
[2022-09-19] MEDS: OLANZapine 10 MG TABLET PO SCH ×2 (09:40→21:10)
[2022-09-19] MEDS: NICOTINE 14 MG/24 HOUR PATCH TD SCH (09:40)
[2022-09-19] MEDS: MULTIVITAMINS WITH MINERALS, THERAPEUTIC TABLET PO SCH (09:40)
[2022-09-19] MEDS: CIPROFLOXACIN HCL 0.2%/HYDROCORT 1% 10 ML OTIC SUSPENSION AU SCH ×2 (09:41→18:20)
[2022-09-19 20:53] VITALS: BP 114/71; PULSE 78; RESP 18; TEMP 97.1
[2022-09-20] MEDS: NICOTINE 14 MG/24 HOUR PATCH TD SCH (10:33)
[2022-09-20] MEDS: OLANZapine 10 MG TABLET PO SCH ×2 (10:33→20:41)
[2022-09-20] MEDS: CIPROFLOXACIN HCL 0.2%/HYDROCORT 1% 10 ML OTIC SUSPENSION AU SCH (10:34)
[2022-09-20] MEDS: MULTIVITAMINS WITH MINERALS, THERAPEUTIC TABLET PO SCH (10:34)
[2022-09-20 11:34] VITALS: BP 151/90; PULSE 81; RESP 16; TEMP 97.7
[2022-09-20 21:40] VITALS: BP 104/65; PULSE 83; RESP 20; TEMP 97.8
[2022-09-21 08:35] VITALS: BP 108/64; PULSE 79; RESP 17; TEMP 97.1
[2022-09-21] MEDS: NICOTINE 14 MG/24 HOUR PATCH TD SCH (08:52)
[2022-09-21] MEDS: MULTIVITAMINS WITH MINERALS, THERAPEUTIC TABLET PO SCH (08:52)
[2022-09-21] MEDS: OLANZapine 10 MG TABLET PO SCH ×2 (08:52→21:36)
[2022-09-21 16:08] VITALS: BP 112/72; PULSE 68; RESP 18; TEMP 97.6
[2022-09-21 17:11] VITALS: RESP 18
[2022-09-21 21:00] VITALS: RESP 19; TEMP 98
[2022-09-21] MEDS: HALOPERIDOL 5 MG TABLET PO PRN (21:37)
[2022-09-21] MEDS: LORazepam 2 MG TABLET PO PRN (21:37)
[2022-09-22 08:46] VITALS: BP 110/79; PULSE 82; RESP 17; TEMP 98.1
[2022-09-22] MEDS: OLANZapine 10 MG TABLET PO SCH ×2 (10:52→20:38)
[2022-09-22] MEDS: MULTIVITAMINS WITH MINERALS, THERAPEUTIC TABLET PO SCH (10:53)
[2022-09-22] MEDS: NICOTINE 14 MG/24 HOUR PATCH TD SCH (10:53)
[2022-09-22] MEDS: HALOPERIDOL 5 MG TABLET PO PRN (10:53)
[2022-09-22 21:05] VITALS: RESP 18
[2022-09-23] MEDS: OLANZapine 10 MG TABLET PO SCH ×2 (07:56→20:46)
[2022-09-23] MEDS: NICOTINE 14 MG/24 HOUR PATCH TD SCH ×2 (07:56→07:59)
[2022-09-23] MEDS: MULTIVITAMINS WITH MINERALS, THERAPEUTIC TABLET PO SCH (07:56)
[2022-09-23 08:55] VITALS: BP 110/61; PULSE 70; RESP 20; TEMP 97.4
[2022-09-23] MEDS: LORazepam 2 MG TABLET PO PRN (20:46)
[2022-09-23] MEDS: HALOPERIDOL 5 MG TABLET PO PRN (20:46)
[2022-09-23 20:57] VITALS: RESP 19
[2022-09-24 08:32] VITALS: RESP 18
[2022-09-24] MEDS: NICOTINE 14 MG/24 HOUR PATCH TD SCH (09:23)
[2022-09-24] MEDS: MULTIVITAMINS WITH MINERALS, THERAPEUTIC TABLET PO SCH (09:23)
[2022-09-24] MEDS: OLANZapine 10 MG TABLET PO SCH ×2 (09:23→20:17)
[2022-09-24 21:30] VITALS: BP 118/76; PULSE 84; RESP 18; TEMP 97.3
[2022-09-25] MEDS: NICOTINE 14 MG/24 HOUR PATCH TD SCH (08:19)
[2022-09-25] MEDS: MULTIVITAMINS WITH MINERALS, THERAPEUTIC TABLET PO SCH (08:19)
[2022-09-25] MEDS: OLANZapine 10 MG TABLET PO SCH ×2 (08:19→21:14)
[2022-09-25 09:48] VITALS: BP 127/78; PULSE 67; RESP 18; TEMP 97.8
[2022-09-25] MEDS: HALOPERIDOL 5 MG TABLET PO PRN (19:30)
[2022-09-25] MEDS: LORazepam 2 MG TABLET PO PRN (19:30)
[2022-09-26] MEDS: NICOTINE 14 MG/24 HOUR PATCH TD SCH (08:29)
[2022-09-26] MEDS: OLANZapine 10 MG TABLET PO SCH ×2 (08:30→20:20)
[2022-09-26] MEDS: MULTIVITAMINS WITH MINERALS, THERAPEUTIC TABLET PO SCH (08:32)
[2022-09-26 09:40] VITALS: BP 104/66; PULSE 101; RESP 18; TEMP 98.2
[2022-09-26] MEDS: ZOLPIDEM TARTRATE 10 MG TABLET PO PRN (20:20)
[2022-09-26 20:29] VITALS: BP 108/70; PULSE 80; RESP 18; TEMP 98.1
[2022-09-27] MEDS: NICOTINE 14 MG/24 HOUR PATCH TD SCH (08:12)
[2022-09-27] MEDS: MULTIVITAMINS WITH MINERALS, THERAPEUTIC TABLET PO SCH (08:12)
[2022-09-27] MEDS: OLANZapine 10 MG TABLET PO SCH ×2 (08:12→20:17)
[2022-09-27 09:00] LABS: COVID AG,FIA SOURCE NASAL SWAB
[2022-09-27 09:32] VITALS: BP 127/93; PULSE 74; RESP 18; TEMP 98.1
[2022-09-27 10:30] LABS: SARS-COV2 (COVID) ANTIGEN,FIA Negative (Negative)
[2022-09-27] MEDS: ZOLPIDEM TARTRATE 10 MG TABLET PO PRN (20:17)
[2022-09-27 22:14] VITALS: BP 98/60; PULSE 70; RESP 17; TEMP 97.6
[2022-09-28 08:17] VITALS: BP 106/75; PULSE 82; RESP 18; TEMP 98.1
[2022-09-28] MEDS: MULTIVITAMINS WITH MINERALS, THERAPEUTIC TABLET PO SCH (09:13)
[2022-09-28] MEDS: OLANZapine 10 MG TABLET PO SCH ×2 (09:13→20:45)
[2022-09-28] MEDS: NICOTINE 14 MG/24 HOUR PATCH TD SCH (09:13)
[2022-09-28] MEDS: ZOLPIDEM TARTRATE 10 MG TABLET PO PRN (21:55)
[2022-09-28 22:11] VITALS: BP 96/62; PULSE 68; RESP 18; TEMP 97.8
[2022-09-29 00:30] VITALS: RESP 18
[2022-09-29 04:27] VITALS: RESP 18
[2022-09-29] MEDS: NICOTINE 14 MG/24 HOUR PATCH TD SCH (09:47)
[2022-09-29] MEDS: OLANZapine 10 MG TABLET PO SCH ×2 (09:47→21:52)
[2022-09-29] MEDS: MULTIVITAMINS WITH MINERALS, THERAPEUTIC TABLET PO SCH (09:47)
[2022-09-29 10:29] VITALS: BP 99/63; PULSE 69; RESP 16; RESP 18; TEMP 98.6
[2022-09-29 13:01] VITALS: TEMP 98.8
[2022-09-29 16:38] VITALS: TEMP 97.9
[2022-09-29 21:54] VITALS: BP 117/77; PULSE 68; RESP 18; TEMP 98.2
[2022-09-30 01:14] VITALS: RESP 18
[2022-09-30 05:42] VITALS: RESP 18
[2022-09-30] MEDS: NICOTINE 14 MG/24 HOUR PATCH TD SCH (08:42)
[2022-09-30] MEDS: OLANZapine 10 MG TABLET PO SCH ×2 (08:42→21:45)
[2022-09-30] MEDS: MULTIVITAMINS WITH MINERALS, THERAPEUTIC TABLET PO SCH (08:42)
[2022-09-30 09:04] VITALS: BP 120/78; PULSE 73; RESP 16; TEMP 98.1
[2022-09-30 11:24] LABS: COVID AG,FIA SOURCE NASAL SWAB
[2022-09-30] MEDS ORDERED: OLAN10TA74 PO (11:56)
[2022-09-30 12:00] VITALS: TEMP 98.2
[2022-09-30 12:12] LABS: SARS-COV2 (COVID) ANTIGEN,FIA Positive (Negative)
[2022-09-30 16:03] VITALS: BP 139/91; PULSE 74; RESP 20; TEMP 97.8
[2022-09-30 22:24] VITALS: BP 101/67; PULSE 78; RESP 18; TEMP 98.2
[2022-10-01 00:30] VITALS: RESP 18; TEMP 98.5
[2022-10-01 06:18] VITALS: RESP 18; TEMP 97.8
[2022-10-01 08:00] VITALS: BP 129/58; PULSE 70; RESP 18; TEMP 98.6
[2022-10-01] MEDS: NICOTINE 14 MG/24 HOUR PATCH TD SCH (10:27)
[2022-10-01] MEDS: OLANZapine 10 MG TABLET PO SCH ×2 (10:27→21:22)
[2022-10-01] MEDS: MULTIVITAMINS WITH MINERALS, THERAPEUTIC TABLET PO SCH (10:27)
[2022-10-01 12:00] VITALS: BP 103/62; PULSE 75; RESP 19; TEMP 97.9
[2022-10-01 16:00] VITALS: BP 107/60; PULSE 73; RESP 18; TEMP 98
[2022-10-01 21:00] VITALS: BP 123/83; PULSE 73; RESP 16; TEMP 97
[2022-10-02 00:40] VITALS: RESP 18
[2022-10-02 04:04] VITALS: RESP 18
[2022-10-02 08:00] VITALS: BP 115/67; PULSE 96; RESP 18; TEMP 97.7
[2022-10-02] MEDS: MULTIVITAMINS WITH MINERALS, THERAPEUTIC TABLET PO SCH (09:24)
[2022-10-02] MEDS: OLANZapine 10 MG TABLET PO SCH ×2 (09:24→20:59)
[2022-10-02] MEDS: NICOTINE 14 MG/24 HOUR PATCH TD SCH (09:24)
[2022-10-02 12:00] VITALS: BP 111/65; PULSE 80; RESP 18; TEMP 98.3
[2022-10-02 16:00] VITALS: BP 112/68; PULSE 83; RESP 18; TEMP 97.8
[2022-10-02 20:19] VITALS: BP 114/76; PULSE 82; RESP 18; TEMP 98.1
[2022-10-02] MEDS: ZOLPIDEM TARTRATE 10 MG TABLET PO PRN (20:59)
[2022-10-02] MEDS: HALOPERIDOL 5 MG TABLET PO PRN (21:40)
[2022-10-03 00:27] VITALS: RESP 18
[2022-10-03 04:14] VITALS: RESP 18
[2022-10-03 08:00] VITALS: BP 113/67; PULSE 74; RESP 18; TEMP 98
[2022-10-03] MEDS: NICOTINE 14 MG/24 HOUR PATCH TD SCH (09:00)
[2022-10-03] MEDS: OLANZapine 10 MG TABLET PO SCH ×2 (11:55→20:54)
[2022-10-03] MEDS: MULTIVITAMINS WITH MINERALS, THERAPEUTIC TABLET PO SCH (11:55)
[2022-10-03 12:00] VITALS: BP 107/72; PULSE 71; RESP 18; TEMP 98.4
[2022-10-03 16:00] VITALS: BP 147/72; PULSE 80; RESP 18; TEMP 98
[2022-10-03 20:00] VITALS: BP 106/77; PULSE 77; RESP 19; TEMP 97.5
[2022-10-03] MEDS: ZOLPIDEM TARTRATE 10 MG TABLET PO PRN (21:31)
[2022-10-04 08:19] VITALS: BP 126/87; PULSE 73; RESP 19; TEMP 98
[2022-10-04] MEDS: NICOTINE 14 MG/24 HOUR PATCH TD SCH (09:00)
[2022-10-04] MEDS: OLANZapine 10 MG TABLET PO SCH ×2 (09:32→20:52)
[2022-10-04] MEDS: MULTIVITAMINS WITH MINERALS, THERAPEUTIC TABLET PO SCH (09:32)
[2022-10-04 12:35] VITALS: BP 120/87; PULSE 85; RESP 18; TEMP 97.6
[2022-10-04 16:05] VITALS: BP 138/89; PULSE 63; RESP 18; TEMP 97.7
[2022-10-04 20:15] VITALS: BP 105/72; PULSE 79; RESP 17; TEMP 97.7
[2022-10-04] MEDS: ZOLPIDEM TARTRATE 10 MG TABLET PO PRN (20:52)
[2022-10-05 00:05] VITALS: RESP 17; TEMP 97.7
[2022-10-05 04:23] VITALS: RESP 18; TEMP 98.1
[2022-10-05 08:00] VITALS: BP 111/58; PULSE 89; RESP 18; TEMP 97.8
[2022-10-05] MEDS: NICOTINE 14 MG/24 HOUR PATCH TD SCH (09:00)
[2022-10-05] MEDS: MULTIVITAMINS WITH MINERALS, THERAPEUTIC TABLET PO SCH (09:32)
[2022-10-05] MEDS: OLANZapine 10 MG TABLET PO SCH ×2 (09:33→20:39)
[2022-10-05 12:00] VITALS: RESP 18; TEMP 97.8
[2022-10-05 16:35] VITALS: RESP 17; TEMP 97.8
[2022-10-05 21:46] VITALS: BP 98/67; PULSE 79; RESP 18; TEMP 98.1
[2022-10-06 03:51] VITALS: RESP 16
[2022-10-06 06:35] VITALS: RESP 16
[2022-10-06 08:23] VITALS: RESP 17; TEMP 97.6
[2022-10-06] MEDS: OLANZapine 10 MG TABLET PO SCH ×2 (08:57→20:57)
[2022-10-06] MEDS: MULTIVITAMINS WITH MINERALS, THERAPEUTIC TABLET PO SCH (08:57)
[2022-10-06] MEDS: NICOTINE 14 MG/24 HOUR PATCH TD SCH (09:00)
[2022-10-06 12:07] VITALS: RESP 18; TEMP 97.8
[2022-10-06 16:00] VITALS: RESP 17; TEMP 97.7
[2022-10-06 21:43] VITALS: RESP 18; TEMP 97.2
[2022-10-07 01:55] VITALS: RESP 18
[2022-10-07 05:09] VITALS: RESP 16
[2022-10-07] MEDS: MULTIVITAMINS WITH MINERALS, THERAPEUTIC TABLET PO SCH (08:32)
[2022-10-07] MEDS: OLANZapine 10 MG TABLET PO SCH ×2 (08:32→21:20)
[2022-10-07] MEDS: NICOTINE 14 MG/24 HOUR PATCH TD SCH (08:32)
[2022-10-07 08:53] VITALS: BP 107/59; PULSE 69; RESP 18; TEMP 97.8
[2022-10-07 12:04] VITALS: RESP 17; TEMP 98
[2022-10-07 16:25] VITALS: RESP 17; TEMP 97.7
[2022-10-07 22:35] VITALS: BP 112/68; PULSE 75; RESP 18; TEMP 97.3
[2022-10-08 06:11] VITALS: RESP 19; TEMP 98
[2022-10-08 08:00] VITALS: BP 101/63; PULSE 70; RESP 18; TEMP 97.8
[2022-10-08] MEDS: NICOTINE 14 MG/24 HOUR PATCH TD SCH (09:00)
[2022-10-08] MEDS: OLANZapine 10 MG TABLET PO SCH ×2 (09:23→20:54)
[2022-10-08] MEDS: MULTIVITAMINS WITH MINERALS, THERAPEUTIC TABLET PO SCH (09:23)
[2022-10-08 12:00] VITALS: TEMP 98
[2022-10-08 16:00] VITALS: BP 120/70; PULSE 70; RESP 20; TEMP 98.5
[2022-10-08 16:04] LABS: COVID AG,FIA SOURCE NASAL SWAB
[2022-10-08 16:21] LABS: SARS-COV2 (COVID) ANTIGEN,FIA Negative (Negative)
[2022-10-08 22:13] VITALS: BP 97/65; PULSE 84; RESP 19; TEMP 98.2
[2022-10-09 02:45] VITALS: RESP 18; TEMP 97.6
[2022-10-09 05:34] VITALS: TEMP 97.9
[2022-10-09 08:13] VITALS: BP 122/78; PULSE 78; RESP 18; TEMP 97.9
[2022-10-09] MEDS: NICOTINE 14 MG/24 HOUR PATCH TD SCH (09:00)
[2022-10-09] MEDS: OLANZapine 10 MG TABLET PO SCH ×2 (09:18→21:09)
[2022-10-09] MEDS: MULTIVITAMINS WITH MINERALS, THERAPEUTIC TABLET PO SCH (09:18)
[2022-10-09 14:21] VITALS: TEMP 97.9
[2022-10-09 18:18] VITALS: TEMP 98
[2022-10-09 22:21] VITALS: BP 123/77; PULSE 82; TEMP 97.3
[2022-10-10] MEDS: MULTIVITAMINS WITH MINERALS, THERAPEUTIC TABLET PO SCH (08:29)
[2022-10-10] MEDS: OLANZapine 10 MG TABLET PO SCH ×2 (08:29→20:58)
[2022-10-10] MEDS: NICOTINE 14 MG/24 HOUR PATCH TD SCH (08:30)
[2022-10-10 09:38] VITALS: BP 118/83; PULSE 79; RESP 18; TEMP 97.5
[2022-10-10 14:36] VITALS: TEMP 97.6
[2022-10-10 17:25] VITALS: TEMP 97.4
[2022-10-10 20:59] VITALS: TEMP 98.1
[2022-10-11 09:00] VITALS: BP 123/73; PULSE 18; RESP 18; TEMP 97.8
[2022-10-11] MEDS: NICOTINE 14 MG/24 HOUR PATCH TD SCH (09:00)
[2022-10-11] MEDS: OLANZapine 10 MG TABLET PO SCH ×2 (09:05→20:58)
[2022-10-11] MEDS: MULTIVITAMINS WITH MINERALS, THERAPEUTIC TABLET PO SCH (09:05)
[2022-10-11 13:53] VITALS: TEMP 98.3
[2022-10-11 17:25] VITALS: TEMP 97.8
[2022-10-11 21:47] VITALS: BP 100/58; PULSE 73; RESP 19; TEMP 98.7
[2022-10-12 04:05] VITALS: RESP 18
[2022-10-12] MEDS: OLANZapine 10 MG TABLET PO SCH ×2 (08:53→20:59)
[2022-10-12] MEDS: NICOTINE 14 MG/24 HOUR PATCH TD SCH (08:53)
[2022-10-12] MEDS: MULTIVITAMINS WITH MINERALS, THERAPEUTIC TABLET PO SCH (08:53)
[2022-10-12 09:00] VITALS: BP 96/56; PULSE 81; RESP 18; TEMP 97.9
[2022-10-12 12:35] VITALS: TEMP 97.6
[2022-10-12 16:08] VITALS: TEMP 97.8
[2022-10-12 21:35] VITALS: BP 94/60; PULSE 79; RESP 18; TEMP 98.1
[2022-10-13 03:39] VITALS: TEMP 97.6
[2022-10-13 05:58] VITALS: TEMP 98
[2022-10-13 08:16] VITALS: BP 145/92; PULSE 82; RESP 18; TEMP 97.2
[2022-10-13] MEDS: OLANZapine 10 MG TABLET PO SCH ×2 (09:15→20:17)
[2022-10-13] MEDS: MULTIVITAMINS WITH MINERALS, THERAPEUTIC TABLET PO SCH (09:15)
[2022-10-13] MEDS: NICOTINE 14 MG/24 HOUR PATCH TD SCH (09:18)
[2022-10-13 14:21] VITALS: TEMP 98.6
[2022-10-13 18:24] VITALS: TEMP 97.9
[2022-10-13 20:50] VITALS: BP 118/63; PULSE 84; RESP 18; TEMP 97.8
[2022-10-14 04:44] VITALS: RESP 18
[2022-10-14] MEDS: NICOTINE 14 MG/24 HOUR PATCH TD SCH (09:00)
[2022-10-14 09:45] VITALS: BP 99/65; PULSE 83; RESP 17; TEMP 97.6
[2022-10-14] MEDS: MULTIVITAMINS WITH MINERALS, THERAPEUTIC TABLET PO SCH (10:05)
[2022-10-14] MEDS: OLANZapine 10 MG TABLET PO SCH ×2 (10:05→20:14)
[2022-10-14 12:00] VITALS: TEMP 98
[2022-10-14 16:00] VITALS: TEMP 97.6
[2022-10-14 20:53] VITALS: BP 109/67; PULSE 80; RESP 18; TEMP 97.8
[2022-10-15 05:37] VITALS: RESP 18
[2022-10-15 08:00] VITALS: BP 97/65; PULSE 77; RESP 17; TEMP 97.1
[2022-10-15] MEDS: OLANZapine 10 MG TABLET PO SCH ×2 (09:10→20:41)
[2022-10-15] MEDS: MULTIVITAMINS WITH MINERALS, THERAPEUTIC TABLET PO SCH (09:11)
[2022-10-15 12:00] VITALS: TEMP 98.3
[2022-10-15 16:11] VITALS: TEMP 98
[2022-10-15 22:00] VITALS: BP 96/67; RESP 18; TEMP 98.2
[2022-10-16] MEDS: OLANZapine 10 MG TABLET PO SCH ×2 (08:31→21:03)
[2022-10-16] MEDS: MULTIVITAMINS WITH MINERALS, THERAPEUTIC TABLET PO SCH (08:31)
[2022-10-16 11:01] VITALS: BP 113/69; PULSE 82; RESP 18; TEMP 97.5
[2022-10-16 20:58] VITALS: BP 96/66; PULSE 77; RESP 19; TEMP 98
[2022-10-16] MEDS: ZOLPIDEM TARTRATE 10 MG TABLET PO PRN (21:03)
[2022-10-17 08:00] VITALS: BP 110/70; PULSE 76; RESP 18; TEMP 98
[2022-10-17] MEDS: MULTIVITAMINS WITH MINERALS, THERAPEUTIC TABLET PO SCH (08:33)
[2022-10-17] MEDS: OLANZapine 10 MG TABLET PO SCH ×2 (08:33→21:02)
[2022-10-17 20:01] VITALS: BP 100/68; PULSE 91; RESP 18; TEMP 98.9
[2022-10-17] MEDS: ZOLPIDEM TARTRATE 10 MG TABLET PO PRN (21:01)
[2022-10-18] MEDS: MULTIVITAMINS WITH MINERALS, THERAPEUTIC TABLET PO SCH (08:52)
[2022-10-18] MEDS: OLANZapine 10 MG TABLET PO SCH ×2 (08:52→20:31)
[2022-10-18 09:11] VITALS: BP 114/67; PULSE 80; RESP 18; TEMP 97.1
[2022-10-18 20:30] VITALS: BP 109/77; PULSE 86; RESP 18; TEMP 98.7
[2022-10-19] MEDS: MULTIVITAMINS WITH MINERALS, THERAPEUTIC TABLET PO SCH (08:36)
[2022-10-19] MEDS: OLANZapine 10 MG TABLET PO SCH ×2 (08:36→21:24)
[2022-10-19] MEDS: NICOTINE 14 MG/24 HOUR PATCH TD PRN (09:19)
[2022-10-19 10:22] VITALS: BP 102/59; PULSE 99; RESP 18; TEMP 98.3
[2022-10-19 20:40] VITALS: BP 109/59; PULSE 80; RESP 18; TEMP 98.2
[2022-10-19] MEDS: ZOLPIDEM TARTRATE 10 MG TABLET PO PRN (21:24)
[2022-10-20 08:00] VITALS: BP 103/66; PULSE 71; RESP 17; TEMP 97.8
[2022-10-20] MEDS: OLANZapine 10 MG TABLET PO SCH ×2 (09:46→20:53)
[2022-10-20] MEDS: MULTIVITAMINS WITH MINERALS, THERAPEUTIC TABLET PO SCH (09:46)
[2022-10-20 20:30] VITALS: BP 108/64; PULSE 70; RESP 18; TEMP 98
[2022-10-21 08:46] VITALS: BP 114/62; PULSE 68; RESP 16; TEMP 98.1
[2022-10-21] MEDS: MULTIVITAMINS WITH MINERALS, THERAPEUTIC TABLET PO SCH (09:13)
[2022-10-21] MEDS: OLANZapine 10 MG TABLET PO SCH ×2 (09:13→20:45)
[2022-10-21 21:51] VITALS: BP 95/62; PULSE 66; RESP 19; TEMP 97.8
[2022-10-22] MEDS: OLANZapine 10 MG TABLET PO SCH ×2 (08:27→20:58)
[2022-10-22] MEDS: MULTIVITAMINS WITH MINERALS, THERAPEUTIC TABLET PO SCH (08:28)
[2022-10-22 08:51] LABS: COVID AG,FIA SOURCE NASAL SWAB
[2022-10-22 09:26] LABS: SARS-COV2 (COVID) ANTIGEN,FIA Negative (Negative)
[2022-10-22] MEDS: NICOTINE 14 MG/24 HOUR PATCH TD PRN (09:40)
[2022-10-22 09:54] VITALS: BP 101/67; PULSE 81; RESP 18; TEMP 98
[2022-10-22 20:00] VITALS: BP 94/65; PULSE 71; RESP 18; TEMP 97.8
[2022-10-23 08:30] VITALS: BP 107/68; PULSE 72; RESP 18; TEMP 98
[2022-10-23] MEDS: MULTIVITAMINS WITH MINERALS, THERAPEUTIC TABLET PO SCH (08:35)
[2022-10-23] MEDS: OLANZapine 10 MG TABLET PO SCH (08:35)
== END 2022-10-23 09:05 | DRG 750 ==
LOC: EMS 14:17 → 3EC 20:29 → 3EI 08-16 18:11 → 3EX 09-27 13:04 → 3EI 09-30 12:55
PROVIDERS: ADMIT Psychiatry & Neurology Psychiatry; ATTEND Psychiatry & Neurology Psychiatry
DX: F20.0 Paranoid schizophrenia (principal); U07.1 COVID-19; D64.9 Anemia, unspecified; E16.2 Hypoglycemia, unspecified; F10.10 Alcohol abuse, uncomplicated; E88.9 Metabolic disorder, unspecified; F15.10 Other stimulant abuse, uncomplicated; F41.9 Anxiety disorder, unspecified; F31.9 Bipolar disorder, unspecified; G47.00 Insomnia, unspecified; Z79.899 Other long term (current) drug therapy; Z87.891 Personal history of nicotine dependence
CPT/HCPCS: 80053; 80307; 85025; 87081; 99285; G0378; G0480; Q9967